=== PATIENT | female | born 1995 | race Caucasian/White ===

== ENCOUNTER 2021-06-18 09:02 | Emergency (ER) | payer SELFPAY ==
[2021-06-18] MEDS ORDERED: HYDROcodone/Acetaminophen 5/325 mg Tablet ONE (09:49)
[2021-06-18] MEDS ORDERED: Boostrix 0.5 ML (Tdap) VIAL ONE (10:11)
== END 2021-06-18 09:54 | disposition home or self-care (01) ==
LOC: BURERS 09:02
DX: L03.116 Cellulitis of left lower limb (principal); Z23 Encounter for immunization
CPT/HCPCS: 90715; 99283